=== PATIENT | male | born 1990 | race American Indian/Alaskan Native ===

== ENCOUNTER 2016-12-16 05:55 | Emergency (ER) | payer OTHER ==
[2016-12-16 06:07] VITALS: BP 186/110
[2016-12-16 06:47] LABS: Eosinophils % (Auto) 0.1 % (0.0-4.3); Hematocrit 43.7 % (35.5-45.6); Hemoglobin 14.1 gm/dl (11.8-15.2); Mean Corpuscular HGB Conc 32 % (32-34); Mean Corpuscular Volume 80 fl (84-94); Platelet Count 228 K/mm3 (140-440); Red Blood Count 5.48 M/mm3 (3.65-5.03); Red Cell Distribution Width 14.8 % (13.2-15.2); White Blood Count 12.5 K/mm3 (4.5-11.0)
[2016-12-16 06:50] LABS: Mean Corpuscular Hemoglobin 26 pg (28-32)
== END 2016-12-16 06:31 | disposition left against medical advice (07) ==
LOC: ED 05:55
DX: R07.9 Chest pain, unspecified (principal); R42 Dizziness and giddiness; Z53.21 Procedure and treatment not carried out due to patient leaving prior to being seen by health care provider
CPT/HCPCS: 36415; 85025; 93005; 93010

== ENCOUNTER 2016-12-16 16:36 | Emergency (ER) | payer OTHER ==
[2016-12-16 20:11] VITALS: BP 152/97
[2016-12-16] MEDS ORDERED: ATIVAN PO ONE (20:40)
--- NOTE | 2016-12-16 21:18 | Emergency Department Report ---
ED Anxiety HPI - General Chief Complaint: Anxiety Stated Complaint: CHEST PAIN/PALPATATIONS/SOB Time Seen by Provider: 12/16/16 20:10 Source: patient Mode of arrival: Ambulatory - History of Present Illness Initial Comments: Patient is a 26-year-old male has a past medical history of cocaine abuse presents with anxiety and chest pain. Patient states that he has used his cocaine, marijuana, and alcohol last night and he has chest discomfort in his left arm it is a 3 out of 10 but doesn't radiate patient denies any nausea or vomiting. He states the chest pains midsternal he states that the pain is a sharp type pain nothing makes it better or worse patient currently now is not having any chest pain is just slightly short of breath and he is very anxious. - Related Data Allergies/Adverse Reactions: Allergies Allergy/AdvReac Type Severity Reaction Status Date / Time No Known Allergies Allergy Unverified 12/16/16 06:19 ED Review of Systems ROS: Stated complaint: CHEST PAIN/PALPATATIONS/SOB Other details as noted in HPI Constitutional: denies: chills, fever Eyes: denies: eye pain, eye discharge, vision change ENT: denies: ear pain, throat pain Respiratory: denies: cough, shortness of breath, wheezing Cardiovascular: chest pain, palpitations Endocrine: no symptoms reported Gastrointestinal: denies: abdominal pain, nausea, diarrhea Genitourinary: denies: urgency, dysuria Musculoskeletal: denies: back pain, joint swelling, arthralgia Skin: denies: rash, lesions Neurological: denies: headache, weakness, paresthesias Psychiatric: anxiety. denies: depression Hematological/Lymphatic: denies: easy bleeding, easy bruising ED Past Medical Hx - Past Medical History Previous Medical History?: No - Surgical History Past Surgical History?: No - Social History Smoking Status: Smoker, Current Status Unknown Substance Use Type: Alcohol, Cocaine, Marijuana ED Physical Exam - General Limitations: No Limitations General appearance: alert, in no apparent distress - Head Head exam: Present: atraumatic, normocephalic - Eye Eye exam: Present: normal appearance - ENT ENT exam: Present: mucous membranes moist - Neck Neck exam: Present: normal inspection - Respiratory Respiratory exam: Present: normal lung sounds bilaterally. Absent: respiratory distress - Cardiovascular Cardiovascular Exam: Present: regular rate, normal rhythm. Absent: systolic murmur, diastolic murmur, rubs, gallop - GI/Abdominal GI/Abdominal exam: Present: soft, normal bowel sounds - Rectal Rectal exam: Present: deferred - Extremities Exam Extremities exam: Present: normal inspection - Back Exam Back exam: Present: normal inspection - Neurological Exam Neurological exam: Present: alert, oriented X3 - Psychiatric Psychiatric exam: Present: anxious. Absent: homicidal ideation, suicidal ideation - Skin Skin exam: Present: warm, dry, intact, normal color. Absent: rash ED Course Vital Signs 12/16/16 12/16/16 16:58 20:08 Temperature 98.5 F 98 F Pulse Rate 95 H 106 H Respiratory 17 18 Rate Blood Pressure 151/111 Blood Pressure 152/97 [Right] O2 Sat by Pulse 100 Oximetry - Reevaluation(s) Reevaluation #1: 12/16/16 21:18 Patient has been evaluated by me he is less anxious and he is saying that he is feeling better. I'll send the patient home ED Medical Decision Making - EKG Data -: EKG Interpreted by Me - EKG Data EKG shows normal sinus rhythm no ST segment elevations or T-wave inversions. - Radiology Data Radiology results: image reviewed Chest x-ray: Shows no acute cardiopulmonary disease - Medical Decision Making Chief medical diagnosis: Cocaine abuse Differential diagnosis: Anxiety, pull chest wall muscle, pneumothorax, arrhythmia EKG and chest x-ray patient will get 1 by mouth Ativan and then will be watched. Patient is feeling better he will be sent home. Critical care attestation.: If time is entered above; I have spent that time in minutes in the direct care of this critically ill patient, excluding procedure time. ED Disposition Clinical Impression: Cocaine abuse Disposition: DC-01 TO HOME OR SELFCARE Is pt being admited?: No Does the pt Need Aspirin: No Condition: Stable Instructions: Cocaine Abuse (ED) Referrals: PRIMARY CARE, [Primary Care Provider] - 3-5 Days Time of Disposition: 21:22
--- NOTE | 2016-12-16 22:11 | XRay Report ---
FINAL REPORT EXAM: XR CHEST ROUTINE 2V HISTORY: eval TECHNIQUE: Frontal and lateral chest x-ray. PRIORS: None. FINDINGS: Cardiac and mediastinal silhouette within normal limits. Lungs are normally expanded, with probable nipple shadows projected over bilateral lower lungs. No focal consolidation, pleural effusion or apparent pneumothorax. IMPRESSION: 1. Probable bilateral nipple shadows incidentally noted. Repeat examination, with nipple markers may be confirmatory, as clinically indicated. 2. No other acute findings.
== END 2016-12-16 21:33 | disposition home or self-care (01) ==
LOC: ED 16:36
DX: F14.10 Cocaine abuse, uncomplicated (principal); F17.200 Nicotine dependence, unspecified, uncomplicated; F12.10 Cannabis abuse, uncomplicated
CPT/HCPCS: 71020; 93005; 93010